=== PATIENT | female | born 1970 | race Caucasian/White ===

== ENCOUNTER 2019-08-03 13:01 | Outpatient (CLI) | payer BC, SELFPAY ==
--- NOTE | ~2019-08-03 | XR_ITS ---
EXAMINATION: XR hand LT 2V DATE: 08/03/2019 13:14 INDICATION: Nontraumatic left hand pain TECHNIQUE: Posteroanterior, oblique and lateral views of the left hand were obtained. COMPARISON: None. FINDINGS: Alignment is normal. No fracture. Moderate osteoarthritis at the first carpometacarpal joint. Mild os teoarthritis at multiple interphalangeal joints with distal predominance. Soft tissues are unremarkab le. IMPRESSION: 1. Mild to moderate polyarticular osteoarthritis most prominent at the first carpometacarpal joint. N o acute osseous abnormality. Reviewed, dictated and finalized at location A. IMPRESSION: 1. Mild to moderate polyarticular osteoarthritis most prominent at the first ca rpometacarpal joint. No acute osseous abnormality.
== END 2019-08-03 13:02 | disposition home or self-care (01) ==
PROVIDERS: PCP Family Medicine; Visit Provider Nurse Practitioner Family
DX: M19.042 Primary osteoarthritis, left hand (principal)
CPT/HCPCS: 73120

== ENCOUNTER 2019-08-23 08:29 | Outpatient (CLI) | payer BC, SELFPAY ==
--- NOTE | ~2019-08-23 | MM_ITS ---
EXAMINATION: MM screening [facility] BI w kaye HISTORY: Baseline screening mammogram TECHNIQUE: Craniocaudal and mediolateral oblique 3-D tomosynthesis images were obtained and synthetic 2-D images were generated. CAD analysis was submitted and interpreted. COMPARISON: None, baseline BREAST PARENCHYMAL COMPOSITION: The breasts are heterogeneously dense, which may obscure small masses . FINDINGS: There is no evidence of suspicious mass, calcification, or architectural distortion to sugg est malignancy in either breast. An area of apparent architectural distortion along the posterior fib roglandular margin in the left breast seen on the craniocaudal view does not have an identifiable cor relate on the mediolateral oblique view. There are punctate round calcifications in both breasts. IMPRESSION: 1. No mammographic evidence of malignancy. 2. Recommend routine screening mammography in one year. BI-RADS Category 2: Benign finding(s). Reviewed, dictated and finalized at location A.
== END 2019-08-23 08:30 | disposition home or self-care (01) ==
PROVIDERS: PCP Family Medicine; Visit Provider Nurse Practitioner Family
DX: Z12.31 Encounter for screening mammogram for malignant neoplasm of breast (principal)
CPT/HCPCS: 77063; 77067

== ENCOUNTER 2019-10-13 14:11 | Outpatient (CLI) | payer BC, SELFPAY ==
--- NOTE | 2019-10-20 01:06 | SLEEP_ITS ---
Home Sleep Test DATE OF STUDY: 10/13/2019 ORDERING PHYSICIAN: Dr. Randy Geller. REASON FOR THE STUDY: Insomnia with sleep apnea. HISTORY: This patient is a 49-year-old female, 5 feet 10 inches tall, weighing 210 pounds with a body mass index of 30.1. She has complaints of difficulty sleeping through the night. She generally falls asleep within 15 minutes of bedtime, but after 2-4 hours, she begins to wake up every 30 minutes. After about 4-6 hours in bed, she gets up for the day. She usually will fall asleep again sitting on the couch or in a chair. She is very tired if her drive time is more than 30 minutes. During this time, she will feel sleepy. If she sits down on the couch or chair to relax, she falls asleep instantly. This has been going on for 1 to 2 years and is very severe. This happens almost nightly. She is constantly waking up during the night in the pocket cutter hours and has excessive daytime sleepiness. She has used [id number] Benadryl and it helps to keep her awake. Melatonin had no effect. No prescription medications have ever been given for this condition. She constantly awakens at night with coughing, constantly snores and it is constantly loud enough that others complain about it. She occasionally awakens from sleep feeling short of breath. She constantly has trouble sleeping with a cold, occasionally wakes up gasping for breath at night, occasionally having breathing problems at night reported to her by others, rarely sweats excessively at night, rarely noticing her heart pounding or beating irregularly at night. She occasionally falls asleep during the day, occasionally involuntarily, occasionally while driving. She does not fall asleep with physical effort, does not fall asleep with laughing or crying. Does not have loss of muscle tone with strong emotion and does not have daytime difficulties due to excessive sleepiness. 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 She does not feel paralyzed on waking or falling asleep. She occasionally has vivid dreamlike scenes upon awakening or falling asleep. She is not afraid to go to sleep. Does not have nightmares. Does not remember her dreams. She rarely has racing thoughts. She occasionally has feelings of sadness, depression, and anxiety. She constantly has muscular tension. She occasionally notices parts of her body jerking. Does not kick at night, does not have crawly achy feelings in her legs or other leg pain at night and does not have morning jaw pain. She never grinds her teeth at night. She frequently is bothered by pain during the day, occasionally is awakened by pain at night, occasionally wakes up feeling stiff in the morning with sore achy muscles. Frequently wakes up with pain in the neck and spine. She has fatigue, memory problems during migraine headaches, insomnia, headaches, tension, and feels unable to relax. She takes antacids regularly. Bedtime is 8:30 p.m., falling asleep within 15 minutes, waking 3-5 times at night and on average, staying awake 20-30 minutes. When she does awaken, she will go to the couch or a chair. She wakes in the morning at 4:15 a.m. Weekend schedule is similar going to bed at 8:30 p.m. waking at 6 a.m. MEDICAL COMORBIDITIES: Hypertension, premenopausal symptoms, heartburn, arthritis, allergies. MEDICATIONS: 1. Zyrtec 10 mg a day. 2. Sudafed 120 mg daily. 3. Multivitamin 1 daily. 4. Vitamin B, vitamin D daily. 5. Lisinopril 10 mg a day. 6. Hydrochlorothiazide 12.5 mg a day. 7. Sertraline 50 mg a day. 8. Omeprazole 40 mg a day. 9. Meloxicam 15 mg a day. 10. Montelukast 10 mg a day. 11. Flonase 2 squirts each nostril daily. 12. Fioricet as needed for migraine headaches. HABITS: Never smoked tobacco. Caffeine, 1 tea and 1 di
== END 2019-10-13 14:12 | disposition home or self-care (01) ==
LOC: ANHCSM 14:12
PROVIDERS: PCP Family Medicine; Visit Provider Family Medicine
DX: G47.00 Insomnia, unspecified (principal); G47.33 Obstructive sleep apnea (adult) (pediatric); Z68.30 Body mass index [BMI] 30.0-30.9, adult
CPT/HCPCS: 95806

== ENCOUNTER 2020-02-28 16:47 | Outpatient (CLI) | payer BC, SELFPAY ==
--- NOTE | ~2020-02-28 | XR_ITS ---
EXAMINATION: XR knee LT 3V DATE: 02/28/2020 17:17 INDICATION: Left knee pain. TECHNIQUE: 3 views of left knee were obtained. COMPARISON: None. FINDINGS: Bone alignment is normal. No fracture. There is mild tricompartmental osteoarthritis. There is a small knee joint effusion. IMPRESSION: 1. Mild left knee osteoarthritis. 2. Small left knee joint effusion. Reviewed, dictated and finalized at location A. [facility] [employer] CONSULTANT
== END 2020-02-28 16:48 | disposition home or self-care (01) ==
PROVIDERS: PCP Family Medicine; Visit Provider Nurse Practitioner Family
DX: M25.569 Pain in unspecified knee (principal); M17.12 Unilateral primary osteoarthritis, left knee; M25.462 Effusion, left knee
CPT/HCPCS: 73562

== ENCOUNTER 2020-04-27 15:09 | Outpatient (CLI) | payer BC, SELFPAY ==
--- NOTE | ~2020-04-27 | XR_ITS ---
XR lumbar spine 2-3V 04/27/2020 15:33 Indication: 3 views lumbar spine Procedure: No prior studies for comparison. Comparison: No prior studies for comparison. Findings: There is lumbarization of S1. Vertebral body heights are maintained. No significant disc na rrowing. Pedicles intact. Sacral foramen are symmetric. There are cholecystectomy clips. No evidence for spondylolisthesis. Impression: 1: No significant abnormality of the lumbar spine. Reviewed, dictated and finalized at location A. 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
== END 2020-04-27 15:10 | disposition home or self-care (01) ==
PROVIDERS: PCP Family Medicine; Visit Provider Nurse Practitioner Family
DX: M54.5 Low back pain (principal)
CPT/HCPCS: 72100

== ENCOUNTER 2020-05-16 10:26 | Outpatient (CLI) | payer BC, SELFPAY ==
--- NOTE | 2020-05-16 11:30 | NEURO_ITS ---
Impression: # Complains of hand numbness. # Left mild Carpal Tunnel Syndrome. # No ulnar neuropathy. # Normal needle/EMG exam. Nerve Conduction Studies Anti Sensory Summary Table Stim Site NR Peak (ms) P-T Amp (?V) Site1 Site2 Delta-P (ms) Dist (cm) Brayden (m/s) Left Median Anti Sensory (2-3nd Digit) Wrist 3.7 38.4 Wrist 2-3nd Digit 3.7 14.0 38 Wrist 3.9 20.3 Wrist 2-3nd Digit 3.7 14.0 38 Right Median Anti Sensory (2-3nd Digit) Wrist 3.0 75.5 Wrist 2-3nd Digit 3.0 14.0 47 Wrist 2.9 38.3 Wrist 2-3nd Digit 3.0 14.0 47 Left Radial Anti Sensory (Base 1st Digit) Wrist 2.0 16.2 Wrist Base 1st Digit 2.0 0.0 Right Radial Anti Sensory (Base 1st Digit) Wrist 2.5 10.1 Wrist Base 1st Digit 2.5 0.0 Left Ulnar Anti Sensory (5th Digit) Wrist 2.2 54.5 Wrist 5th Digit 2.2 14.0 64 Right Ulnar Anti Sensory (5th Digit) Wrist 2.3 27.2 Wrist 5th Digit 2.3 14.0 61 Motor Summary Table Stim Site NR Onset (ms) O-P Amp (mV) Site1 Site2 Delta-0 (ms) Dist (cm) Brayden (m/s) Left Median Motor (Abd Poll Brev) Wrist 3.9 1.0 Elbow Wrist 4.1 26.0 63 Elbow 8.0 0.5 Right Median Motor (Abd Poll Brev) Wrist 3.1 5.6 Elbow Wrist 4.6 28.0 61 Elbow 7.7 5.2 Left Ulnar Motor (Abd Dig Minimi) Wrist 2.2 9.3 A Elbow Wrist 4.1 26.0 63 A Elbow 6.3 4.6 Right Ulnar Motor (Abd Dig Minimi) Wrist 2.2 7.9 A Elbow Wrist 4.7 29.0 62 A Elbow 6.9 6.6 F Wave Studies NR F-Lat (ms) L-R F-Lat (ms) Left Median (Mrkrs) (Abd Poll Brev) 24.28 0.99 Right Median (Mrkrs) (Abd Poll Brev) 23.29 0.99 Left Ulnar (Mrkrs) (Abd Dig Min) 23.70 0.05 Right Ulnar (Mrkrs) (Abd Dig Min) 23.75 0.05 EMG Side Muscle Nerve Root Ins Act Fibs Amp Dur Recrt Comment Right 1stDorInt Ulnar C8-T1 Nml Nml Nml Nml Nml Right Ext Indicis Radial (Post Int) C7-8 Nml Nml Nml Nml Nml Right Ext Digitorum Radial (Post Int) C7-8 Nml Nml Nml Nml Nml Right BrachioRad Radial C5-6 Nml Nml Nml Nml Nml Right PronatorTeres Median C6-7 Nml Nml Nml Nml Nml Right Abd Poll Brev Median C8-T1 Nml Nml Nml Nml Nml Left 1stDorInt Ulnar C8-T1 Nml Nml Nml Nml Nml Left Ext Indicis Radial (Post Int) C7-8 Nml Nml Nml Nml Nml Left Ext Digitorum Radial (Post Int) C7-8 Nml Nml Nml Nml Nml Left BrachioRad Radial C5-6 Nml Nml Nml Nml Nml Left PronatorTeres Median C6-7 Nml Nml Nml Nml Nml Left Abd Poll Brev Median C8-T1 Nml Nml Nml Nml Nml MTDD
== END 2020-05-16 10:27 | disposition home or self-care (01) ==
PROVIDERS: PCP Family Medicine; Visit Provider Nurse Practitioner Family
DX: M79.643 Pain in unspecified hand (principal); G56.02 Carpal tunnel syndrome, left upper limb
CPT/HCPCS: 95886; 95911

== ENCOUNTER 2020-06-18 13:09 | Outpatient (CLI) | payer BC, SELFPAY ==
--- NOTE | ~2020-06-18 | US_ITS ---
EXAMINATION:US venous doppler LE BI INDICATION:Leg pain and swelling TECHNIQUE: Multiple grayscale, color flow and Doppler images of the right and left lower extremity de ep venous systems were obtained and reviewed. COMPARISON:No prior studies for comparison. FINDINGS: The common femoral, superficial femoral and popliteal veins demonstrate normal respiratory variation, augmentation and compressibility. Color flow is also seen within the posterior tibial, pe roneal, greater saphenous and profunda veins. IMPRESSION: 1: No lower extremity deep venous thrombosis. Reviewed, dictated and finalized at location A.
--- NOTE | ~2020-06-18 | US_ITS ---
EXAMINATION: US art doppler w press ELMER DATE: 06/18/2020 14:34 INDICATION: Right lower limb pain and swelling. TECHNIQUE: Segmental pressures and plethysmographic and Doppler waveforms of the brachial and lower e xtremity arteries were obtained. COMPARISON: None. FINDINGS: Right and left brachial artery pressures of 130 mm Hg and 115 mm Hg, respectively, are concordant (no rmal difference <= 30 mmHg). The right low-thigh pressure index is 1.48. The right ankle-brachial index (LIBAN) is 1.18 (normal >= 0 .9-1.0). The right great toe-brachial index (TBI) is 0.88 (normal >= 0.65). Arterial Doppler waveform s are at least triphasic from common femoral artery to dorsalis pedis and biphasic in posterior tibia l artery. The left low-thigh pressure index is 1.26. The left LIBAN is 1.13. The left TBI is 0.67. Arterial Doppl er waveforms are at least triphasic from common femoral artery to the ankle. IMPRESSION: 1. No significant arterial occlusive disease. Reviewed, dictated and finalized at location A.
== END 2020-06-18 13:10 | disposition home or self-care (01) ==
PROVIDERS: PCP Family Medicine; Visit Provider Nurse Practitioner Family
DX: M79.604 Pain in right leg (principal); R60.0 Localized edema
CPT/HCPCS: 93923; 93970

== ENCOUNTER → 2021-08-29 15:46 | Outpatient (CLI) | payer BC, OTHER, SELFPAY ==
--- NOTE | ~2021-08-29 | XR_ITS ---
XR lumbar spine min 4V DATE: 08/29/2021 16:48 INDICATION: Low back pain TECHNIQUE: AP, lateral, coned lateral lumbosacral and bilateral oblique views COMPARISON: 04/27/2020 lumbar spine FINDINGS: Minimal dextroscoliosis of the lumbar spine. Transitional first sacral vertebra with sacral ization and pseudoarthrosis on the left. This may be a source of chronic low back pain. There is moderate degenerative disc disease throughout the lumbar spine. No fracture or bone destruct ion or spondylolisthesis. The lumbar pedicles are intact. The included lower thoracic pedicles are in tact. The sacroiliac joints are unremarkable abdomen mild degenerative change. IMPRESSION: Transitional lumbosacral vertebra with sacralization pseudoarthrosis on the left; this is a possible source of chronic back pain Minimal lumbar dextroscoliosis Moderate degenerative disc disease of the lumbar spine Status post cholecystectomy Reviewed, dictated and finalized at location A. IMPRESSION: Transitional lumbosacral vertebra with sacralization pseudoarthrosi s on the left; this is a possible source of chronic back pain Minimal lumbar dextroscoliosis Moderate degenerative disc disease of the lumbar spine Status post cholecystectomy
== END ==
PROVIDERS: PCP Family Medicine; Visit Provider Nurse Practitioner Family
DX: M47.816 Spondylosis without myelopathy or radiculopathy, lumbar region (principal); M41.9 Scoliosis, unspecified; Z90.49 Acquired absence of other specified parts of digestive tract
CPT/HCPCS: 72110

== ENCOUNTER → 2021-10-01 16:42 | Outpatient (CLI) | payer BC, OTHER, SELFPAY ==
--- NOTE | ~2021-10-01 | MR_ITS ---
EXAMINATION: MR hand LT wo con DATE: 10/01/2021 17:37 INDICATION: Left hand pain with pain, swelling and limited range of motion at the left thumb TECHNIQUE: Magnetic resonance imaging (MRI) of the left hand centered at the left thumb was performed without intravenous contrast. Sequences included axial, sagittal and coronal T1-weighted FSE, axial and sagittal T2-weighted FS FSE and coronal PD-weighted FS FSE. COMPARISON: 09/04/2021 FINDINGS: Severe osteoarthritis at the first carpometacarpal joint with nonuniform joint space narrowing, subar ticular edema and cystlike changes at both sides of the joint space. Slight dorsal subluxation at the joint space with remodeling of the articular surfaces and prominent osteophyte formation at the palm ar base of the first metacarpal. No fracture. Remaining joint spaces in the visualized portion of the left hand appear relatively preserved. Thickening of the ulnar collateral ligament of the first meta carpophalangeal joint without surrounding edema or discrete defect consistent with scarring related t o chronic sprain. Stabilizing ligaments at the first carpometacarpal joint. Remaining intact. The vis ualized portions of the flexor and extensor tendons and intrinsic musculature of the hand are normal. No joint effusions or other abnormal fluid collections. IMPRESSION: 1. Severe osteoarthritis at the first carpometacarpal joint. No acute osseous abnormality. Reviewed, dictated and finalized at location A. IMPRESSION: 1. Severe osteoarthritis at the first carpometacarpal joint. No acute osseous a bnormality.
== END ==
PROVIDERS: PCP Family Medicine; Visit Provider Nurse Practitioner
DX: M79.642 Pain in left hand (principal); M18.12 Unilateral primary osteoarthritis of first carpometacarpal joint, left hand
CPT/HCPCS: 73218

== ENCOUNTER 2021-11-12 14:58 | Outpatient (CLI) | payer BC, OTHER, SELFPAY ==
--- NOTE | ~2021-11-12 | MR_ITS ---
EXAMINATION: MR lumbar spine wo con DATE: 11/12/2021 15:37 INDICATION: Low back pain TECHNIQUE: Magnetic resonance imaging (MRI) of the lumbar spine was performed without intravenous con trast. Sequences included sagittal T2-weighted FSE, sagittal T2-weighted FS FSE, sagittal T1-weighted FSE, and axial T2-weighted FSE. COMPARISON: None FINDINGS: Transitional partially lumbarized S1 segment with right-sided transverse process and partial sacraliz ation on the left. 3 mm retrolisthesis L4 on L5. Vertebral body heights are normal. Normal marrow si gnal. Disc desiccation with annular fissure and small central disc extrusion at L5-S1 Minimal decreas ed disc signal at L2-L3 and L3-L4. The conus medullaris terminates at L1. There is normal signal in t he caudal spinal cord. Paravertebral soft tissues are unremarkable. The following disc levels are spe cifically discussed: L1-L2: The disc does not extend beyond the endplate margin. There is mild bilateral facet joint osteo arthritis. There is no neural foraminal stenosis. There is no central canal stenosis. L2-L3: The disc does not extend beyond the endplate margin. There is mild bilateral facet joint osteo arthritis. There is no neural foraminal stenosis. There is no central canal stenosis. L3-L4: The disc does not extend beyond the endplate margin. There is mild bilateral facet joint osteo arthritis. There is no neural foraminal stenosis. There is no central canal stenosis. L4-L5: Disc is mildly bulging. There is mild bilateral facet joint osteoarthritis. There is no neural foraminal stenosis. There is no central canal stenosis. L5-S1: Annular fissure at L5-S1 with small central disc extrusion with disc material extending up to 3 mm caudal to the level of the superior endplate of L5. There is mild left and moderate right facet joint osteoarthritis. There is no neural foraminal stenosis. There is no central canal stenosis. IMPRESSION: 1. Mild lumbar spondylosis. No acute osseous abnormality. Reviewed, dictated and finalized at location A.
== END 2021-11-12 14:59 | disposition home or self-care (01) ==
LOC: ANHIMG 15:02
PROVIDERS: PCP Family Medicine; Visit Provider Nurse Practitioner Family
DX: M47.817 Spondylosis without myelopathy or radiculopathy, lumbosacral region (principal); M48.07 Spinal stenosis, lumbosacral region
CPT/HCPCS: 72148

== ENCOUNTER 2021-12-16 15:44 | Emergency (ER) | payer BC, SELFPAY ==
--- NOTE | 2021-12-16 15:51 | ED.URI ---
HPI - URI/Sore Throat General Chief Complaint: Upper Respiratory Infection Stated Complaint: Sore Throat, Right Ear Pain Time Seen by Provider: 12/16/21 15:51 Source: patient and RN notes reviewed Mode of arrival: ambulatory Limitations: no limitations Related Data Home Medications Medication Instructions Recorded Confirmed cholecalciferol (vitamin D3) 125 5,000 unit PO DAILY 01/03/19 10/18/21 mcg (5,000 unit) capsule loratadine 10 mg tablet (Claritin) 10 mg PO DAILY 11/22/20 10/18/21 cetirizine 10 mg capsule (Zyrtec) 10 mg PO DAILY PRN 06/26/21 10/18/21 fluticasone propionate 50 1 spray intranasal DAILY PRN 08/29/21 10/18/21 mcg/actuation nasal spray,suspension (Flonase Allergy Relief) Allergies Allergy/AdvReac Type Severity Reaction Status Date / Time metformin AdvReac Mild heart Verified 10/16/21 10:27 palpatations, hot flashes erythromycin base AdvReac Unknown upset Verified 10/16/21 10:27 stomach Review of Systems Review of Systems: All systems reviewed & are unremarkable except as noted in HPI and below Constitutional: Constitutional: Reports no additional constitutional complaints, Denies chills and Denies fever(s) Eyes: Eyes: Reports no additional eye complaints ENT: Reports system reviewed and no additional complaints, except as documented Cardiovascular: Cardiovascular: Reports no additional cardiovascular complaints Respiratory: Respiratory: Reports no additional respiratory complaints Gastrointestinal: Gastrointestinal: Reports no additional gastrointestinal complaints Musculoskeletal: Musculoskeletal: Reports no additional musculoskeletal complaints Integumentary/Breasts: Skin/Breast: Reports system reviewed and no additional complaints, except as docu Neurologic: Reports system reviewed and no additional complaints, except as documented Psychiatric: Psychiatric: Reports no additional psychiatric complaints Allergic/Immunologic: Allergic/Immunologic: Reports no additional allergic/immunologic complaints [facility] Past Medical History Medical History Arthritis of carpometacarpal (CMC) joint of left thumb Arthritis of carpometacarpal (CMC) joint of right thumb Bilateral hand pain Body mass index (BMI) of 40.1 to 44.9 in adult Hemoglobin A1c less than 7.0% 06/12/20 a1c = 6.2 Morbid (severe) obesity due to excess calories Morbid obesity Surgical History Surgical History History of cholecystectomy Family History Family History Grandparent Diabetes mellitus Father Mother Hyperlipidemia Sibling No problems noted. 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 There is no relevant family history pertinent to the patient complaint. Exam Const: General: healthy appearing, no acute distress, alert and well nourished Nutritional Appearance: well nourished Orientation/consciousness: patient oriented x3 Limitations: no limitations HENMT: Head: normal to inspection Ears: external ears normal Eyes: General: appearance normal, both eyes and all related structures Pupils: Equal, round and reactive pupils present Neck: Neck: normal visual inspection, no lymp
[2021-12-16 16:00] VITALS: BP 133/69; PULSE 80; RESP 16; TEMP 36.9; O2SAT 99
--- NOTE | 2021-12-16 16:04 | ED.URI ---
HPI - URI/Sore Throat General Chief Complaint: Upper Respiratory Infection Stated Complaint: Sore Throat, Right Ear Pain Time Seen by Provider: 12/16/21 15:51 Source: patient, RN notes reviewed and old records reviewed Mode of arrival: ambulatory Limitations: no limitations History of Present Illness HPI Narrative: 51 year female presents to the [facility] with complaints of a sore throat and right ear pain. Patient states that she had COVID on the 02 of November. States that she was getting better and then ?just stopped. ? Has constant postnasal drip. Has taken her daily medications to include Singulair, Claritin, Zyrtec, Mucinex and Flonase. Related Data Home Medications Medication Instructions Recorded Confirmed cholecalciferol (vitamin D3) 125 5,000 unit PO DAILY 01/03/19 12/16/21 mcg (5,000 unit) capsule loratadine 10 mg tablet (Claritin) 10 mg PO DAILY 11/22/20 12/16/21 cetirizine 10 mg capsule (Zyrtec) 10 mg PO DAILY 06/26/21 12/16/21 fluticasone propionate 50 1 spray intranasal DAILY 08/29/21 12/16/21 mcg/actuation nasal spray,suspension (Flonase Allergy Relief) Allergies Allergy/AdvReac Type Severity Reaction Status Date / Time metformin AdvReac Mild heart Verified 12/16/21 16:05 palpatations, hot flashes erythromycin base AdvReac Unknown upset Verified 12/16/21 16:05 stomach Review of Systems Review of Systems: All systems reviewed & are unremarkable except as noted in HPI and below Constitutional: Constitutional: Reports no additional constitutional complaints, Denies chills and Denies fever(s) Eyes: Eyes: Reports no additional eye complaints ENT: Reports as per HPI Cardiovascular: Cardiovascular: Reports no additional cardiovascular complaints Respiratory: Respiratory: Reports no additional respiratory complaints Gastrointestinal: Gastrointestinal: Reports no additional gastrointestinal complaints Musculoskeletal: Musculoskeletal: Reports no additional musculoskeletal complaints Integumentary/Breasts: Skin/Breast: Reports system reviewed and no additional complaints, except as docu Neurologic: Reports system reviewed and no additional complaints, except as documented Psychiatric: Psychiatric: Reports no additional psychiatric complaints Allergic/Immunologic: Allergic/Immunologic: Reports no additional allergic/immunologic complaints PMFSH Past Medical History Medical History Arthritis of carpometacarpal (CMC) joint of left thumb Arthritis of carpometacarpal (CMC) joint of right thumb Bilateral hand pain Body mass index (BMI) of 40.1 to 44.9 in adult Hemoglobin A1c less than 7.0% 06/12/20 a1c = 6.2 Morbid (severe) obesity due to excess calories Morbid obesity Surgical History Surgical History History of cholecystectomy Family History Family History Grandparent Diabetes mellitus Father Mother Hyperlipidemia Sibling No problems noted. 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 There is no relevant family history pertinent to the patient complaint. Exam Const: General: healthy appearing, no acute distress, alert and well nourished Nutritional
== END 2021-12-16 16:50 | disposition home or self-care (01) ==
PROVIDERS: Emergency Provider Nurse Practitioner; PCP Family Medicine
DX: S00.411A Abrasion of right ear, initial encounter (principal); J06.9 Acute upper respiratory infection, unspecified; X58.XXXA Exposure to other specified factors, initial encounter
CPT/HCPCS: 87081; 87804; 87880; 99213; G0463

== ENCOUNTER 2022-02-06 09:42 | Outpatient (CLI) | payer BC, SELFPAY | END 2022-02-06 09:43 | disposition home or self-care (01) | LOC: ANHAUDASC 09:43 | PROVIDERS: PCP Family Medicine; Visit Provider Family Medicine | DX: H91.90 Unspecified hearing loss, unspecified ear (principal) | CPT/HCPCS: 92557; 92567 ==

== ENCOUNTER 2022-02-11 15:49 | Outpatient (CLI) | payer BC, SELFPAY ==
--- NOTE | ~2022-02-11 | XR_ITS ---
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 RESULT: Lines, tubes, and devices: Cholecystectomy clips. Lungs and pleura: Clear. Cardiomediastinal silhouette: Stable. Other: No acute osseous or upper abdominal finding. IMPRESSION: No acute cardiopulmonary process. Reviewed, dictated and finalized at location K. R COMMISSIONER
== END 2022-02-11 15:50 | disposition home or self-care (01) ==
LOC: ANHIMG 15:51
PROVIDERS: PCP Family Medicine; Visit Provider Nurse Practitioner Family
DX: R05.9 Cough, unspecified (principal)
CPT/HCPCS: 71046

== ENCOUNTER 2022-03-28 00:26 | Day surgery (SDC) | payer BC, OTHER, SELFPAY ==
[2022-03-14 13:54] VITALS: BMI 43.0
[2022-03-28 07:38] VITALS: BMI 43.9
[2022-03-28] MEDS: LACTATED RINGERS 1,000 ML 150 ML IV CONT (07:50)
--- NOTE | 2022-03-28 07:50 | WPDANESEPPF ---
Anes - Initial Pre Proc Eval Procedure: Operation Date: 03/28/22 08:45 Proposed Procedures p Screening Colonoscopy - Timbo Guevara MD Date/Time: 03/28/22 07:50 Surgeon: Timbo Guevara MD Pre Op Diagnosis: neoplasm screening Patient Data Age: 52 Gender: F Height: 1.52 m Weight: 102.2 kg Allergies Allergy/AdvReac Type Severity Reaction Status Date / Time metformin AdvReac Mild heart Verified 03/28/22 07:36 palpatations, hot flashes erythromycin base AdvReac Unknown upset Verified 03/28/22 07:36 stomach Home Medications Medication Instructions Recorded Confirmed Type cholecalciferol (vitamin D3) 125 5,000 unit PO DAILY 01/03/19 03/28/22 History mcg (5,000 unit) capsule loratadine 10 mg tablet (Claritin) 10 mg PO DAILY 11/22/20 03/28/22 History cetirizine 10 mg capsule (Zyrtec) 10 mg PO DAILY 06/26/21 03/28/22 History fluticasone propionate 50 1 spray intranasal DAILY 08/29/21 03/28/22 History mcg/actuation nasal spray,suspension (Flonase Allergy Relief) montelukast 10 mg tablet 10 mg PO DAILY #90 tabs 09/24/21 03/28/22 Rx (Singulair) semaglutide 1 mg/dose (2 mg/1.5 1 mg (0.75 mL) subcut WEEKLY #3 mL 11/11/21 03/28/22 Rx mL) subcutaneous pen injector acetaminophen 650 mg 1,300 mg PO .QD PRN Pain 01/28/22 03/28/22 History tablet,extended release (Tylenol Arthritis Pain) guaifenesin 1,200 mg tablet, 1,200 mg PO DAILY 01/28/22 03/28/22 History extended release 12 hr (Mucinex) ibuprofen 200 mg tablet 800 mg PO QHS PRN Pain 01/28/22 03/28/22 History lisinopril 10 1 tablet PO DAILY #90 tabs 01/28/22 03/28/22 Rx mg-hydrochlorothiazide 12.5 mg tablet butalbital 50 mg-acetaminophen 300 1 cap PO Q4H PRN pain #45 caps 02/27/22 03/28/22 Rx mg-caffeine 40 mg-codeine 30 mg cap (Fioricet with Codeine) sertraline 50 mg tablet (Zoloft) 25 mg PO DAILY #30 tabs 02/27/22 03/28/22 Rx multivitamin with minerals-folic 1 tablet PO DAILY 03/14/22 03/28/22 History acid 0.4 mg tablet omeprazole 40 mg capsule,delayed 40 mg PO DAILY 03/14/22 03/28/22 History release tizanidine 4 mg capsule 4 mg PO DAILY #30 caps 03/25/22 03/28/22 Rx Patient hx anesthesia problems: none Family hx anesthesia problems: none Results Review: All pre-operative results and documents have been reviewed as part of the pre-operative evaluation. [facility] Past Medical History Medical History Amenorrhea Arthritis of carpometacarpal (CMC) joint of left thumb Arthritis of carpometacarpal (CMC) joint of right thumb Bilateral hand pain Body mass index (BMI) of 40.1 to 44.9 in adult Chronic pain Hearing loss Hemoglobin A1c less than 7.0% 06/12/20 a1c = 6.2 Insomnia Menopausal and perimenopausal disorder Morbid (severe) obesity due to excess calories Morbid obesity Surgical History Surgical History History of cholecystectomy Family History Family History Grandparent Diabetes mellitus Father Mother Hyperlipidemia Sibling No problems noted. 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
[2022-03-28 07:52] LABS: Glucose Point of Care 89 mg/dl (65-105)
--- NOTE | 2022-03-28 08:19 | PM.HPGS ---
History of Present Illness History of Present Illness Consent: Risks, benefits, and alternatives have been discussed and questions answered. Patient agrees to proceed with procedure. Chief complaint: neoplasm screening Narrative: Jessica Perez is a 52 year old female here for first screening colonoscopy Review of Systems Constitutional: Constitutional: Denies headache(s) and Denies weakness Eyes: Eyes: Denies blurry vision ENT: Reports Normal hearing present, Denies headache(s) and Denies neck pain Cardiovascular: Cardiovascular: Denies chest pain and Denies dyspnea Respiratory: Respiratory: Denies dyspnea Gastrointestinal: Gastrointestinal: Reports no additional gastrointestinal complaints Genitourinary: Genitourinary: Denies dysuria Musculoskeletal: Musculoskeletal: Denies neck pain Integumentary/Breasts: Skin/Breast: Denies dry skin Neurologic: Reports Normal hearing present, Denies headache(s) and Denies weakness Psychiatric: Psychiatric: Denies anxiety Endocrine: Endocrine: Denies change in body appearance Hematologic/Lymphatic: Hematologic/Lymphatic: Denies easy bleeding Allergic/Immunologic: Allergic/Immunologic: Denies urticaria PMF Past Medical History Medical History (Updated 03/28/22 @ 08:19 by Timbo Guevara MD) Amenorrhea Arthritis of carpometacarpal (CMC) joint of left thumb Arthritis of carpometacarpal (CMC) joint of right thumb Bilateral hand pain Body mass index (BMI) of 40.1 to 44.9 in adult Chronic pain Colon cancer screening Hearing loss Hemoglobin A1c less than 7.0% 06/12/20 a1c = 6.2 Insomnia Menopausal and perimenopausal disorder Morbid (severe) obesity due to excess calories Morbid obesity Surgical History Surgical History History of cholecystectomy Family History Family History Grandparent Diabetes mellitus Father Mother Hyperlipidemia Sibling No problems noted. 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 Gender identity (if verbalized by the patient): Female Sexual Orientation (if Verbalized by the Patient): Straight or Heterosexual Spiritual care concerns: No Agree to blood products: Yes Meds Home Medications and Allergies Home Medications Medication Instructions Recorded Confirmed Type cholecalciferol (vitamin D3) 125 5,000 unit PO DAILY 01/03/19 03/28/22 History mcg (5,000 unit) capsule loratadine 10 mg tablet (Claritin) 10 mg PO DAILY 11/22/20 03/28/22 History cetirizine 10 mg capsule (Zyrtec) 10 mg PO DAILY 06/26/21 03/28/22 History fluticasone propionate 50 1 spray intranasal DAILY 08/29/21 03/28/22 History mcg/actuation nasal spray,suspension (Flonase Allergy Relief) montelukast 10 mg tablet 10 mg PO DAILY #90 tabs 09/24/21 03/28/22 Rx (Singulair) semaglutide 1 mg/dose (2 mg/1.5 1 mg (0.75 mL) subcut WEEKLY #3 mL 11/11/21 03/28/22 Rx mL) subcutaneous pen injector acetaminophen 650 mg 1,300 mg PO .QD PRN Pain 01/28/22 03/28/22 History tablet,extended release (Tylenol Arthritis Pain) guaifenesin 1,200 mg tablet, 1,200 mg PO DAILY 01/28/22 03/28/22 History extended re
[2022-03-28 08:39] VITALS: BP 115/63; PULSE 73; RESP 17; O2SAT 96
[2022-03-28 08:49] VITALS: BP 116/69; PULSE 68; RESP 17; O2SAT 98
[2022-03-28 08:59] VITALS: BP 114/70; PULSE 71; RESP 19; O2SAT 98
== END 2022-03-28 09:15 | disposition home or self-care (01) ==
PROVIDERS: PCP Family Medicine; Visit Provider Internal Medicine Gastroenterology
PROC: 0DJD8ZZ Inspection of Lower Intestinal Tract, Via Natural or Artificial Opening Endoscopic (ICD-10-PCS; CPT 45378; principal; 2022-03-28 08:45)
DX: Z12.11 Encounter for screening for malignant neoplasm of colon (principal); Z79.899 Other long term (current) drug therapy; E66.01 Morbid (severe) obesity due to excess calories; Z68.41 Body mass index [BMI] 40.0-44.9, adult
CPT/HCPCS: 45378; 82948; J2704; J7120

== ENCOUNTER 2022-04-18 14:41 | Outpatient (CLI) | payer BC, OTHER, SELFPAY ==
--- NOTE | ~2022-04-18 | US_ITS ---
EXAMINATION: US pelvic complete w TV DATE: 04/18/2022 15:21 INDICATION: Amenorrhea, unspecified TECHNIQUE: Multiple transabdominal and endovaginal sonographic images of the pelvis were obtained. COMPARISON: None. FINDINGS: The uterus measures 9.0 x 3.9 x 4.7 cm. The endometrial complex measures 8 mm. The ovaries are not visualized however no adnexal abnormality is seen. There is no free fluid in the pelvis. IMPRESSION: 1. Endometrial thickness appears to measure 8 mm. If the patient is postmenopausal, finding may be du e to hyperplasia, polyp, or malignancy and endometrial sampling would be recommended. Reviewed, dictated and finalized at location F. MACHINE OPERATOR HELPER IMPRESSION: 1. Endometrial thickness appears to measure 8 mm. If the patient is postmenopau thierno, finding may be due to hyperplasia, polyp, or malignancy and endometrial sa mpling would be recommended.
--- NOTE | ~2022-04-18 | MM_ITS ---
EXAMINATION: MM screening martha BI w kaye HISTORY: Screening TECHNIQUE: Craniocaudal and mediolateral oblique 3-D tomosynthesis images were obtained and synthetic 2-D images were generated. CAD analysis was submitted and interpreted. COMPARISON: 08/23/2019 BREAST PARENCHYMAL COMPOSITION: The breasts are heterogeneously dense, which may obscure small masses FINDINGS: There is no evidence of suspicious mass, calcification, or architectural distortion to sugg est malignancy in either breast. There has been no suspicious interval change. IMPRESSION: 1. No mammographic evidence of malignancy. 2. Recommend routine screening mammography in one year. BI-RADS Category 1: Negative Reviewed, dictated and finalized at location B. EL TRUCK TECHNICIAN
== END 2022-04-18 14:42 ==
LOC: MICIMG 14:42
PROVIDERS: PCP Family Medicine; Visit Provider Family Medicine
DX: Z12.31 Encounter for screening mammogram for malignant neoplasm of breast (principal); N91.2 Amenorrhea, unspecified
CPT/HCPCS: 76830; 76856; 77063; 77067

== ENCOUNTER 2022-05-08 14:30 | Outpatient (RCR) | payer BC, OTHER, SELFPAY | END 2022-06-05 08:24 | disposition other institution (70) | LOC: ANHAUDASC 14:30 | PROVIDERS: PCP Family Medicine; Visit Provider Family Medicine | DX: Z46.1 Encounter for fitting and adjustment of hearing aid (principal) | CPT/HCPCS: 99199; V5261 ==

== ENCOUNTER 2022-05-26 08:20 | Outpatient (CLI) | payer BC, OTHER, SELFPAY ==
--- NOTE | 2022-06-24 17:31 | WPDSLEEPSTUD ---
Sleep Study Date of Study: 05/26/22 Ordering Provider: Constance Joe DO Interpreting Physician: Bailey Keita MD Sleep Study Type: CPAP Titration Height: 1.52 m Weight: 98.43 kg Body Mass Index: 42.3 Neck Circumference (inches): 16 [place]: 11 Reason for Sleep Study Has obstructive sleep apnea, needs new equipment Has used APAP 5-20 cm with 2 cm EPR with good compliance * 10/13/2019; home sleep test showing severe obstructive sleep apnea, AHI is 33, desaturation to 82%, 73% of the apneas were obstructive with the remainder being central apneas and mixed apneas. BMI was 30.1 Sleep History Jessica Perez is a 52-year-old woman with obstructive sleep apnea. ?She has used an auto PAP.? She wakes up after 4-6 hours of sleep and cannot return to sleep.? In the 4-6 hours that she does sleep, she wakes several times. ?While wearing CPAP, ?she rarely awakens from sleep feeling short of breath.? While using CPAP, she occasionally awakens at night with heartburn, belching or coughing.? She never snores on CPAP.? She occasionally has trouble sleeping with a cold.? She does not gasp for breath at night or have breathing problems at night observed by others.? She occasionally sweats at night.? She does not notice her heart pounding or beating irregularly at night.? She occasionally falls asleep during the day, occasionally falls asleep involuntarily.? She does not fall asleep while driving.? She does not have loss of muscle tone with strong emotion.? She occasionally has daytime difficulties due to excessive sleepiness.? 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 She rarely feels paralyzed on waking or falling asleep.? She does not have vivid dreamlike scenes on waking or falling asleep.? She does not feel afraid to go to sleep.? She does not have nightmares.? She does not remember dreams.? She does not have racing thoughts.? She does not feel sad or depressed.? She rarely has anxiety.? She frequently has muscular tension and notices parts of her body jerking.? She never kicks at night.? She frequently has crawling and aching feelings in her legs and leg pain at night.? She does not have morning jaw pain.? She does not grind her teeth during sleep.? She frequently is bothered by pain during the day, frequently awakened by pain at night.? She frequently wakes up with pain in the neck and spine. ?She has insomnia and she takes antacids regularly. Normal bedtime is 9:00 p.m. falling asleep within 15 minutes.? She will wake 3-5 times during the night.? During this time she rolls over, changes position, stretches her legs.? If it takes more than 5 minutes to fall asleep she may get out of bed for a short while.? She wakes the morning at 5:00 a.m..? Her weekend schedule is the same.? She estimates getting between 4 and 6 hours of sleep at night. Habits:? Never smoked tobacco.? Caffeine 30 oz of ice tea daily.? No alcohol or recreational substances. [facility] Past Medical History Medical History (Updated 06/24/22 @ 17:48 by Bailey Keita MD) Amenorrhea Arthritis of carpometacarpal (CMC) joint of left thumb Arthritis of carpometacarpal (CMC) joint of right thumb Bilateral hand pain Body mass index (BMI) of 40.1 to 44.9 in adult Chronic pain Colon cancer screening Depression Hearing loss Hemoglobin A1c less than 7.0% 06/12/20 a1c = 6.2 History of 1 1995 History of vaginal delivery x2 Insomnia Menopausal and perimenopausal disorder Morbid (severe) obesity due to excess calories Morbid obesity NATTY (obstructive sleep apnea) Surgical History Surgical History (Updated 06/05/22 @ 07:07 by Domenica Rob MA) History of cholecystectomy [place] teeth removed Family History Family History (Updated 06/05/22 @ 07:13 by Domenica Rob MA) Grandparent Diabetes mellitus Father Mother Hyperlipidemia Cancer Type unknown Sibling No problems noted. Other Diabetes mellitus Aunt and Uncle Hyper
[2022-06-24 17:58] VITALS: BMI 42.3
== END 2022-05-27 06:39 | disposition home or self-care (01) ==
LOC: ANHCSM 08:27
PROVIDERS: PCP Family Medicine; Visit Provider Family Medicine
DX: G47.33 Obstructive sleep apnea (adult) (pediatric) (principal); E66.01 Morbid (severe) obesity due to excess calories; Z68.41 Body mass index [BMI] 40.0-44.9, adult
CPT/HCPCS: 95811

== ENCOUNTER 2022-09-16 15:38 | Outpatient (CLI) | payer BC, OTHER, SELFPAY ==
--- NOTE | ~2022-09-16 | XR_ITS ---
Right Shoulder Technique: AP and scapular Y views were obtained. Clinical History: Pain Findings: No fracture or dislocation is seen. Osseous alignment is anatomic. There is moderate AC laith nt degenerative change. Glenohumeral joint is intact. Soft tissues are unremarkable. Impression: Moderate AC joint degenerative change. Reviewed, dictated and finalized at location . Impression: Moderate AC joint degenerative change.
== END 2022-09-16 15:39 | disposition home or self-care (01) ==
PROVIDERS: PCP Family Medicine; Visit Provider Nurse Practitioner Family
DX: M19.011 Primary osteoarthritis, right shoulder (principal)
CPT/HCPCS: 73030

== ENCOUNTER 2023-02-22 10:27 | Emergency (ER) | payer BC, SELFPAY ==
[2023-02-22 10:40] VITALS: BP 131/78; PULSE 91; RESP 16; TEMP 36.9; O2SAT 100
--- NOTE | 2023-02-22 10:56 | ED.DENTAL ---
HPI - Dental/Oral General Chief complaint: Dental/Oral Stated complaint: Sore Throat/Ear/Dental Pain Time Seen by Provider: 02/22/23 10:49 Mode of arrival: ambulatory Limitations: no limitations History of Present Illness HPI Narrative: 53-year-old female presents with multiple complaints. She reports 2 week history of sinus congestion, a sore throat. Reports she has developed right ear pain, ear fullness. Reports last night she began having right lower dental pain. She reports she is in between dentist currently. She reports she has been taking Tylenol alternate with diclofenac without relief. Reports dental pain is keeping her awake at night. MD Complaint: tooth pain Related Data Home Medications Medication Instructions Recorded Confirmed cholecalciferol (vitamin D3) 125 5,000 unit PO DAILY 01/03/19 02/22/23 mcg (5,000 unit) capsule loratadine 10 mg tablet (Claritin) 10 mg PO DAILY 11/22/20 02/22/23 cetirizine 10 mg capsule (Zyrtec) 10 mg PO DAILY 06/26/21 02/22/23 multivitamin with minerals-folic 1 tablet PO DAILY 03/14/22 02/22/23 acid 0.4 mg tablet fluticasone propionate 50 1 spray intranasal DAILY 06/02/22 02/22/23 mcg/actuation nasal spray,suspension (Flonase Allergy Relief) pseudoephedrine HCl 120 mg 120 mg PO Q12H 06/02/22 02/22/23 tablet,extended release (Sudafed 12 Hour) acetaminophen 650 mg 1,300 mg PO TID Pain 09/15/22 02/22/23 tablet,extended release (Tylenol Arthritis Pain) Allergies Allergy/AdvReac Type Severity Reaction Status Date / Time metformin AdvReac Mild heart Verified 02/22/23 10:31 palpatations, hot flashes erythromycin base AdvReac Unknown upset Verified 02/22/23 10:31 stomach Review of Systems Review of Systems: CONSTITUTIONAL: Denies malaise, chills, sweats, or fever. EYES: Denies visual changes ENT: Reports rhinorrhea, congestion, sinus pain, otalgia, sore throat. Reports right lower dental pain CARDIOVASCULAR: Denies chest pain, palpitations RESPIRATORY: Denies cough or dyspnea. SKIN: Denies rash or itching. MUSCULOSKELETAL: Denies myalgia. NEUROLOGIC: Denies numbness, weakness, or headache. All systems reviewed & are unremarkable except as noted in HPI and below PMFSH Past Medical History Medical History Amenorrhea Arthritis of carpometacarpal (CMC) joint of left thumb Arthritis of carpometacarpal (CMC) joint of right thumb Bilateral hand pain BMI 37.0-37.9, adult Body mass index (BMI) of 40.1 to 44.9 in adult Chronic pain Colon cancer screening Constipation Depression Hearing loss Hemoglobin A1c less than 7.0% 06/12/20 a1c = 6.2 History of 1 1995 History of vaginal delivery x2 Insomnia Menopausal and perimenopausal disorder Morbid (severe) obesity due to excess calories Morbid obesity NATTY (obstructive sleep apnea) Surgical History Surgical History History of cholecystectomy [place] teeth removed Family History Family History Grandparent Diabetes mellitus Father Mother Hyperlipidemia Cancer Type unknown Sibling No problems noted. Other Diabetes mellitus Aunt and Uncle Hypertension Uncle Heart disease Uncle and Grandparent Daughter Depression Social History Social History Smoking status: Never smoker Second hand tobacco smoke exposure: No Alcohol intake: former Substance use: never Substance use type: does not use Lack of Transportation: No Lack of Food: Never True Current Housing: I Have Housing Concerned About Future Housing: No Difficulty Paying Gas/Electric Bills: No Difficulty Paying for Meds: No Currently Unemployed: No Education: Trade/Vocational Certificate Difficulty w/ Childcare o
== END 2023-02-22 11:05 | disposition home or self-care (01) ==
PROVIDERS: Emergency Provider Nurse Practitioner; PCP Family Medicine
DX: K08.89 Other specified disorders of teeth and supporting structures (principal); J32.9 Chronic sinusitis, unspecified; Z79.899 Other long term (current) drug therapy
CPT/HCPCS: 99213; G0463

== ENCOUNTER 2023-02-23 19:45 | Emergency (ER) | payer BC, SELFPAY ==
[2023-02-23 20:04] VITALS: BP 139/77; PULSE 92; RESP 15; TEMP 36.3; O2SAT 99
--- NOTE | 2023-02-23 21:16 | ED.GENADULT ---
HPI - General Adult General Chief complaint: Dental/Oral Stated complaint: tooth infection, jaw pain Time Seen by Provider: 02/23/23 20:40 Source: patient Mode of arrival: ambulatory Limitations: no limitations History of Present Illness HPI narrative: This is a 53-year-old female who presents to the ED with chief complaint of right upper dental pain for the past 2 weeks. Reports he radiates into the right jaw and right ear area. Reports being seen by urgent care yesterday and has been started on Augmentin and Medrol Dosepak. She states the antibiotics have not been helpful likely have been in the past with dental infections. Tramadol has not helped with pain at all. She is taking Advil and Tylenol around the clock. Denies fevers, chills, trismus, drooling, nausea, vomiting, trouble swallowing. Related Data Home Medications Medication Instructions Recorded Confirmed cholecalciferol (vitamin D3) 125 5,000 unit PO DAILY 01/03/19 02/22/23 mcg (5,000 unit) capsule loratadine 10 mg tablet (Claritin) 10 mg PO DAILY 11/22/20 02/22/23 cetirizine 10 mg capsule (Zyrtec) 10 mg PO DAILY 06/26/21 02/22/23 multivitamin with minerals-folic 1 tablet PO DAILY 03/14/22 02/22/23 acid 0.4 mg tablet fluticasone propionate 50 1 spray intranasal DAILY 06/02/22 02/22/23 mcg/actuation nasal spray,suspension (Flonase Allergy Relief) pseudoephedrine HCl 120 mg 120 mg PO Q12H 06/02/22 02/22/23 tablet,extended release (Sudafed 12 Hour) acetaminophen 650 mg 1,300 mg PO TID Pain 09/15/22 02/22/23 tablet,extended release (Tylenol Arthritis Pain) Allergies Allergy/AdvReac Type Severity Reaction Status Date / Time metformin AdvReac Mild heart Verified 02/23/23 20:41 palpatations, hot flashes erythromycin base AdvReac Unknown upset Verified 02/23/23 20:41 stomach Review of Systems Review of Systems: All systems as dictated in [facility] Past Medical History Medical History Amenorrhea Arthritis of carpometacarpal (CMC) joint of left thumb Arthritis of carpometacarpal (CMC) joint of right thumb Bilateral hand pain BMI 37.0-37.9, adult Body mass index (BMI) of 40.1 to 44.9 in adult Chronic pain Colon cancer screening Constipation Depression Hearing loss Hemoglobin A1c less than 7.0% 06/12/20 a1c = 6.2 History of 1 1995 History of vaginal delivery x2 Insomnia Menopausal and perimenopausal disorder Morbid (severe) obesity due to excess calories Morbid obesity NATTY (obstructive sleep apnea) Surgical History Surgical History History of cholecystectomy [place] teeth removed Family History Family History Grandparent Diabetes mellitus Father Mother Hyperlipidemia Cancer Type unknown Sibling No problems noted. Other Diabetes mellitus Aunt and Uncle Hypertension Uncle Heart disease Uncle and Grandparent Daughter Depression Social History Social History Smoking status: Never smoker Second hand tobacco smoke exposure: No Alcohol intake: former Substance use: never Substance use type: does not use Lack of Transportation: No Lack of Food: Never True Current Housing: I Have Housing Concerned About Future Housing: No Difficulty Paying Gas/Electric Bills: No Difficulty Paying for Meds: No Currently Unemployed: No Education: Trade/Vocational Certificate Difficulty w/ Childcare or Family Care: No Living arrangements: with family Additional living arrangements comments: Occupation/Education: occupation 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
[2023-02-23] MEDS: KETOROLAC 30 MG/ML VIAL (*BKC) IM (21:30)
[2023-02-23] MEDS: HYDROcodone/acetaminophen (*CRX) 5-325 MG TABLET 1 TAB PO (21:30)
[2023-02-23] MEDS: CLINDAMYCIN HCL 150 MG CAP 300 MG PO (21:31)
== END 2023-02-23 22:09 | disposition home or self-care (01) ==
PROVIDERS: Emergency Provider Physician Assistant; PCP Family Medicine
DX: K04.7 Periapical abscess without sinus (principal); G47.33 Obstructive sleep apnea (adult) (pediatric); M18.4 Other bilateral secondary osteoarthritis of first carpometacarpal joints; E66.01 Morbid (severe) obesity due to excess calories; Z68.39 Body mass index [BMI] 39.0-39.9, adult; F32.A Depression, unspecified; Z79.85 Long-term (current) use of injectable non-insulin antidiabetic drugs
CPT/HCPCS: 96372; 99283; A9270; J1885

== ENCOUNTER 2023-12-04 12:54 | Outpatient (CLI) | payer OTHER, SELFPAY | END 2023-12-04 12:55 | disposition home or self-care (01) | PROVIDERS: PCP Family Medicine; Visit Provider Family Medicine | DX: H90.3 Sensorineural hearing loss, bilateral (principal); H93.13 Tinnitus, bilateral | CPT/HCPCS: 92557; 92567 ==

== ENCOUNTER 2024-05-10 12:40 | Outpatient (CLI) | payer BC, SELFPAY ==
--- NOTE | ~2024-05-10 | CT_ITS ---
EXAMINATION: CT sinus wo con DATE: 05/10/2024 12:56 INDICATION: Chronic sinusitis TECHNIQUE: Computed tomography (CT) of the paranasal sinuses was performed without intravenous contra st. The dose-length product was 377.88 mGy-cm. Automated exposure control and iterative reconstructio n technique were employed. COMPARISON: None FINDINGS: The paranasal sinuses are pneumatized without significant no air-fluid levels. No significa nt mucoperiosteal reaction. Rightward nasal septal deviation. Ostiomeatal units are patent bilaterall y. Mastoids are pneumatized without effusion. IMPRESSION: 1. No significant sinus disease. Reviewed, dictated and finalized at location A.
== END 2024-05-10 12:41 | disposition home or self-care (01) ==
LOC: GOSHIMG 12:41
PROVIDERS: PCP Family Medicine; Visit Provider Family Medicine
DX: J32.9 Chronic sinusitis, unspecified (principal)
CPT/HCPCS: 70486

== ENCOUNTER 2024-05-19 15:20 | Outpatient (CLI) | payer BC, SELFPAY ==
--- NOTE | ~2024-05-19 | XR_ITS ---
EXAM: XR lumbar spine min 4V DATE: 05/19/2024 15:47 HISTORY: M54.42 - Lumbago with sciatica, left side . COMPARISON: 08/29/2021; MR lumbar spine 11/12/2021. FINDINGS: Cholecystectomy clips. 6 nonrib-bearing lumbar-type vertebral bodies, presumably due to hy poplastic ribs at L1. Transitional anatomy, partial sacralization of L5 with pseudoarthrosis on the l eft. Pedicles intact. Normal vertebral body alignment. Vertebral body heights preserved. Multilevel m ild disc space narrowing and marginal osteophytosis. Multilevel mild lower lumbar facet hypertrophy a nd sclerosis. No pars defect. No fracture or dislocation. 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 Multilevel mild degenerative disc d isease. Mild lower lumbar facet arthropathy. Reviewed, dictated and finalized at location K. 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 Multilevel mi ld degenerative disc disease. Mild lower lumbar facet arthropathy.
== END 2024-05-19 15:21 | disposition home or self-care (01) ==
PROVIDERS: PCP Family Medicine; Visit Provider Nurse Practitioner Family
DX: M96.0 Pseudarthrosis after fusion or arthrodesis (principal); M51.369 Other intervertebral disc degeneration, lumbar region without mention of lumbar back pain or lower extremity pain; M47.816 Spondylosis without myelopathy or radiculopathy, lumbar region; M54.30 Sciatica, unspecified side
CPT/HCPCS: 72110

== ENCOUNTER 2024-06-02 08:45 | Outpatient (CLI) | payer BC, SELFPAY ==
--- NOTE | ~2024-06-02 | MR_ITS ---
MRI of the lumbar spine Clinical History: Back pain Technique: Axial T2-weighted images, and sagittal T1-weighted, T2-weighted, and [place]AN[place] fat-sat images we re acquired. COMPARISON: 11/12/2021 Findings: There is no fracture or subluxation of the lumbar spine. Vertebral bodies maintain normal h eight and alignment. At L1-L2 and L2-L3, there is no disc bulge or herniation. No spinal canal stenosis or neural foramina l narrowing at these levels. L3-L4, there is minimal disc desiccation. There is moderate facet arthropathy. No central canal steno sis or neural foraminal narrowing. At L4-L5, there is minimal disc desiccation with advanced facet arthropathy. No central canal stenosi s or neural foraminal narrowing. At L5-S1, there is mild disc bulge and small annular fissure. There is moderate facet arthropathy. No central canal stenosis or neural foraminal narrowing. Paravertebral soft tissues are unremarkable. Impression: Minimal degenerative change, essentially stable from prior exam. Reviewed, dictated and finalized at location . Impression: Minimal degenerative change, essentially stable from prior exam.
== END 2024-06-02 08:46 | disposition home or self-care (01) ==
LOC: GOSHIMG 08:45
PROVIDERS: PCP Nurse Practitioner Family; Visit Provider Nurse Practitioner Family
DX: M51.369 Other intervertebral disc degeneration, lumbar region without mention of lumbar back pain or lower extremity pain (principal)
CPT/HCPCS: 72148

== ENCOUNTER 2024-07-26 13:32 | Outpatient (CLI) | payer BC, SELFPAY ==
--- NOTE | ~2024-07-26 | US_ITS ---
Pelvic ultrasound. Clinical History: Abnormal uterine bleeding Technique: Realtime transabdominal and transvaginal scanning of the pelvis was performed. Color flow Doppler and Doppler spectral analysis were performed. Findings: The uterus is anteverted. The endometrial stripe has a thickness of 5 mm. No focal mass is identified. Cervical nabothian cysts present. Neither ovary seen. No adnexal mass seen. There is no evidence of free fluid in the cul de sac. Impression: No significant abnormality seen. Neither ovary visualized. Reviewed, dictated and finalized at location M. Impression: No significant abnormality seen. Neither ovary visualized.
== END 2024-07-26 13:33 | disposition home or self-care (01) ==
LOC: GOSHIMG 13:32
PROVIDERS: PCP Nurse Practitioner Adult Health; Visit Provider Nurse Practitioner Adult Health
DX: N93.9 Abnormal uterine and vaginal bleeding, unspecified (principal)
CPT/HCPCS: 76830